=== PATIENT | male | born 1945 | race Asian ===

== ENCOUNTER 2016-05-14 19:30 | Emergency (ER) | payer MEDICAID, OTHER ==
[~2016-05-14] VITALS: Ht 170.2 cm; Wt 91.3 kg
[~2016-05-14 19:30] MED LIST: ASPI-1061 PO; ISON100L PO; METO25 PO; NITR.4 SL; PYRI50 PO; SIMV-260 PO
[2016-05-14] MEDS ORDERED: PANT40TA25 PO (19:48)
[2016-05-14] MEDS ORDERED: ASPI-1093 PO (19:48)
[2016-05-14] MEDS ORDERED: ISOR40SR PO (19:48)
[2016-05-14] MEDS ORDERED: METO-323 PO (19:48)
[2016-05-14 19:51] LABS: GLUCOSE,POINT OF CARE 128 MG/DL (70-110)
[2016-05-14 20:10] LABS: BASOPHILS % (AUTO) 0.4 % (0.0-2.0); EOSINOPHILS % (AUTO) 1.4 % (1.0-6.0); HEMATOCRIT 49.6 % (41-53); HEMOGLOBIN 16.3 g/dL (13.5-17.5); LYMPHOCYTES # (AUTO) 2.4 K/uL (1.0-4.8); LYMPHOCYTES % (AUTO) 34.6 % (22.0-44.0); MEAN CORPUSCULAR HEMOGLOBIN 31.6 pg (26.0-34.0); MEAN CORPUSCULAR HGB CONC 32.8 G/dL (31.0-37.0); MEAN CORPUSCULAR VOLUME 96 fL (80-100); MONOCYTES # (AUTO) 0.6 K/uL (0.1-1.0); MONOCYTES % (AUTO) 9.1 % (2.0-9.0); NEUTROPHILS # (AUTO) 3.7 K/uL (1.8-7.7); NEUTROPHILS % (AUTO) 54.5 % (40.0-70.0); PLATELET COUNT (AUTO) 166 K/uL (150-450); RED BLOOD CELL COUNT(AUTO) 5.16 MIL/uL (4.50-5.90); RED CELL DISTRIBUTION WIDTH 13.2 % (11.5-14.5); WHITE BLOOD COUNT (AUTO) 6.8 K/uL (4.5-11.0)
[2016-05-14 20:12] LABS: ANION GAP 7 mmol/L (8-16); CALCIUM, TOTAL 8.8 mg/dL (8.8-10.5); CARBON DIOXIDE 31 mmol/L (22-29); CHLORIDE 104 mmol/L (98-107); CREATININE 0.89 mg/dL (0.60-1.30); GLOMERULAR FILTR. RATE CALC > 60 mL/min (>60); POTASSIUM 3.5 mmol/L (3.5-5.1); SODIUM SERUM 142 mmol/L (136-145); UREA NITROGEN, BLOOD 18 mg/dL (7-18)
[2016-05-14 20:26] LABS: PROTHROMBIN TIME 10.5 SEC (9.4-11.6)
[2016-05-14 20:36] LABS: ALANINE AMINOTRANSFERASE 44 U/L (12-78); ALBUMIN 3.8 g/dL (3.4-5.0); ASPARTATE AMINOTRANSFERASE 21 U/L (15-37); BILIRUBIN,TOTAL 0.4 mg/dL (0.1-1.0); CREATINE KINASE MB 1.6 ng/mL (0-5); CREATINE KINASE, TOTAL 160 U/L (39-308); TOTAL PROTEIN, SERUM 7.2 g/dL (6.4-8.2)
[2016-05-14 20:40] LABS: B-TYPE NATRIURETIC PEPTIDE 41 pg/mL (0-100)
[2016-05-14 21:55] VITALS: BP 142/94
== END 2016-05-14 22:03 | disposition home or self-care (01) ==
LOC: EMS 19:30
DX: G51.0 Bell's palsy (principal); E78.00 Pure hypercholesterolemia, unspecified; I10 Essential (primary) hypertension; Z79.82 Long term (current) use of aspirin; Z88.8 Allergy status to other drugs, medicaments and biological substances
CPT/HCPCS: 70450; 82962; 93005; 99285

== ENCOUNTER 2018-10-08 08:34 | Day surgery (SDC) | payer OTHER ==
[~2018-10-08] VITALS: Ht 170.2 cm; Wt 89.0 kg
[~2018-10-08 08:34] MED LIST changes: +0.9% SODIUM CHLORIDE 10 ML SYRINGE IVP PRN; -ASPI-1061 PO; +ASPI-1182 PO; +ASPI81TA87 PO; +ISOR40SR PO; +METO25XL PO; +METOPROLOL TARTRATE 50 MG TABLET PO PRN; -NITR.4 SL; +NITR0.4T52 SL; +PANT40TA25 PO
[2018-10-08] MEDS ORDERED: AMLO2.5T4 PO (09:13)
[2018-10-08 09:29] LABS: ANION GAP 7 mmol/L (8-16); CALCIUM, TOTAL 8.7 mg/dL (8.8-10.5); CARBON DIOXIDE 29 mmol/L (22-29); CHLORIDE 106 mmol/L (98-107); CREATININE 0.97 mg/dL (0.60-1.30); GLUCOSE,RANDOM 98 mg/dL (70-110); POTASSIUM 3.9 mmol/L (3.5-5.1); SODIUM SERUM 142 mmol/L (136-145); UREA NITROGEN, BLOOD 18 mg/dL (7-18)
[2018-10-08 09:38] LABS: GLOMERULAR FILTR. RATE CALC > 60 mL/min (>60)
[2018-10-08] MEDS ORDERED: IOVERSOL 350 MG/ML 150 ML VIAL ONE (10:38)
[2018-10-08] MEDS ORDERED: SODIUM CHLORIDE 0.9% 100 ML ONE (10:38)
[2018-10-08] MEDS ORDERED: NITROGLYCERIN 400 MCG/SUBLINGUAL SPRAY 4.9 GM BOTTLE SL ONE ×2 (11:00→11:26)
[2018-10-08] MEDS ORDERED: METOPROLOL TARTRATE 5 MG/5 ML VIAL ONE (11:01)
[2018-10-08] MEDS ORDERED: METOPROLOL TARTRATE 5 MG/5 ML VIAL IVP ONE (11:11)
== END 2018-10-08 12:15 | disposition home or self-care (01) ==
LOC: SURGERY 08:34 → EDSTATUS 10:30 → SURGERY 12:15
PROVIDERS: ATTEND Internal Medicine Cardiovascular Disease
DX: R07.9 Chest pain, unspecified (principal); I51.7 Cardiomegaly
CPT/HCPCS: 36415; 75574; 80048; 93005; J3490; J7050; Q9967